=== PATIENT | female | born 1940 | race Caucasian/White ===

== ENCOUNTER 2018-09-12 06:25 | Day surgery (SDC) | payer MEDICARE, OTHER ==
[~2018-09-12 06:25] MED LIST: ALPRAZolam 0.25 MG TAB PO PRN; ASPIRIN 325 MG TAB PO ONE; ATORVASTATIN 80 MG TAB PO ONE; SODIUM CHLORIDE 0.9% 1,000 ML IV SCH; SODIUM CHLORIDE 0.9% 1,000 ML in EMPTY BAG 1 BAG IV ONE
[2018-09-12 06:52] LABS: Glucose,Whole Blood 158 mg/dL (75-99)
[2018-09-12] MEDS ORDERED: MIDAZOLAM 2 MG/2 ML VIAL IVP ONE (08:44)
[2018-09-12] MEDS ORDERED: LIDOCAINE 1% INJ 10MG/ML (20 ML MDV) SQ ONE (08:49)
[2018-09-12] MEDS ORDERED: IOPAMIDOL-370 125ML BTL INJ ONE ×2 (09:08)
[2018-09-12] MEDS ORDERED: IOPAMIDOL-250 100ML BTL IV ONE ×2 (09:08)
[2018-09-12] MEDS ORDERED: RX INFO: IV CONTRAST WAS GIVEN 1 EACH MISC MISCELLANE PRN (09:14)
[2018-09-12] MEDS ORDERED: SODIUM CHLORIDE 0.9% 1,000 ML IV SCH (09:15)
[2018-09-12 13:07] VITALS: RESP 18; TEMP 98.1
[2018-09-12 14:46] VITALS: BMI 29.7
[2018-09-12 14:51] VITALS: BP 156/72; PULSE 63
--- NOTE | 2018-09-12 15:54 | CC ---
CARDIAC CATHETERIZATION REPORT DATE OF SERVICE: 09/12/2018 PERFORMING PHYSICIAN: Kaushik Pressley MD, pantograph i engraver. PROCEDURES PERFORMED: 1. Selective right and left coronary angiogram. 2. Left heart catheterization. INDICATION: This is a pleasant 77-year-old female patient with a history of hypertension and dyslipidemia who was experiencing chest discomfort concerning for angina. A heart catheterization was advised. APPROACH: Right common femoral artery. COMPLICATIONS: None. LEVEL OF SEDATION: Moderate, with sedation length of 10 minutes. PROCEDURE DESCRIPTION: After obtaining informed consent, the patient was brought to the cardiac label stitcher. The right common femoral artery was cannulated using micropuncture technique. The micropuncture wire passed easily. Then I placed a 6-Hebrew sheath in the right common femoral artery. After that I did selective right and left coronary angiogram using JR4 and JL4 catheters. Left heart catheterization was performed using a 6-Hebrew pigtail catheter. The procedure was completed without any complication. SELECTIVE CORONARY ANGIOGRAM: 1. The right coronary artery is a large-caliber vessel. It is a dominant vessel. The proximal RCA has a lesion that appeared to be in the range of 30%. The mid RCA appeared to be normal and RCA distally is normal and bifurcates into PDA and PLV branches; both are angiographically normal. 2. The left main is angiographically normal. It bifurcates into left circumflex and left anterior descending artery. 3. The left circumflex is a large-caliber vessel. It is a nondominant vessel. The left circumflex appeared to have mild disease only. It gives rise to a large OM branch which appeared to be angiographically normal. 4. The LAD. The proximal LAD appeared to have disease in the range of 20% to 30%. The mid LAD has another lesion that appeared to be in the range of 30%. The LAD in the mid to distal portion has a tight lesion in the range of 80%. HEMODYNAMICS: The left ventricular end-diastolic pressure appeared to be 4 mmHg and no gradient was identified across the aortic valve. 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 POST-PROCEDURE MANAGEMENT: 1. Maximize medical treatment at this point of time. 2. If the patient continues to have chest discomfort, we will bring her back to undergo PCI of the mid to distal LAD. MMODL / IJN: [id number] /
--- NOTE | 2018-09-12 22:54 | AN ---
ANGIOGRAPHY REPORT DATE OF SERVICE: 09/12/2018 PERFORMING PHYSICIAN: Kaushik Pressley MD, data abstractor. PROCEDURES PERFORMED: 1. Abdominal aortogram. 2. Bilateral lower extremity runoff. INDICATION: This is a pleasant 77-year-old female patient who was experiencing symptoms of bilateral lower extremity intermittent claudication. She was brought today to undergo an abdominal aortogram and bilateral lower extremity runoff. LEVEL OF SEDATION: Moderate, with sedation length of 12 minutes. PROCEDURE DESCRIPTION: Please refer to diagnostic heart catheterization procedure description that was performed on the same day. After that, the pigtail catheter was pulled into the aorta just by the bifurcation of renal arteries. Then I did an abdominal aortogram. Then I did pull the catheter into above the bifurcation of the aorta to right and left common iliac arteries. I did bilateral lower extremity runoff after that. The procedure was completed without any complication. SELECTIVE PERIPHERAL ANGIOGRAM: 1. The aorta is angiographically normal. It bifurcates into right and left common iliac arteries. 2. Common iliac arteries. The right and left common iliac arteries are angiographically normal. 3. Internal iliac arteries. The right and left internal iliac arteries are normal. 4. External iliac arteries. The right and left external iliac arteries are normal. 5. Profundae. The right and left profundae are normal. 6. SFA. The right and left SFA are normal. 7. Popliteals. The right and left popliteals are normal. 8. Below the knee. There is 3-vessel runoff below the knee bilaterally. CONCLUSION: Normal peripheral angiogram. POST-PROCEDURE MANAGEMENT: 1. Medical treatment. 2. Follow up with the patient. MMODL / IJN: [id number] /
--- NOTE | 2018-09-13 08:45 | IR ---
EXAMINATION TYPE: IR angio abdominal w runoff DATE OF EXAM: 09/12/2018 CLINICAL HISTORY: Left-sided leg swelling TECHNIQUE: Fluoroscopy. COMPARISON: None. FINDINGS: Fluoroscopic guidance was provided during angiogram procedure performed by Dr. Pressley. A to hannah of 4.1 minutes of fluoroscopic time was utilized during the procedure and 12 cine runs are acquir ed. Initial images show cardiac catheterization. Follow-up images show abdominal angiogram with bilat eral lower extremity runoff from right groin approach. Please refer to procedure note for further det ails as I was not present nor performed procedure. IMPRESSION: As Above.
== END 2018-09-12 17:30 | disposition home or self-care (01) ==
LOC: CATHCVL 06:25 → 1SOBS 09:10 → CATHCVL 17:30
PROVIDERS: ATTEND Internal Medicine Interventional Cardiology
DX: I25.110 Atherosclerotic heart disease of native coronary artery with unstable angina pectoris (principal); I10 Essential (primary) hypertension; I70.213 Atherosclerosis of native arteries of extremities with intermittent claudication, bilateral legs; E11.51 Type 2 diabetes mellitus with diabetic peripheral angiopathy without gangrene; Z82.49 Family history of ischemic heart disease and other diseases of the circulatory system; Z79.84 Long term (current) use of oral hypoglycemic drugs; Z79.82 Long term (current) use of aspirin; Z79.899 Other long term (current) drug therapy; Z88.5 Allergy status to narcotic agent; Z88.0 Allergy status to penicillin; Z88.8 Allergy status to other drugs, medicaments and biological substances
CPT/HCPCS: 93458; 75625; 75716; C1769 ×3; C1894; J2250; J2001; Q9966; Q9967